=== PATIENT | male | born 1995 | race Caucasian/White ===

== ENCOUNTER 2020-12-15 04:23 | Emergency (ER) | payer SELFPAY ==
[2020-12-15 04:37] VITALS: BMI 34.4
[2020-12-15] MEDS ORDERED: SODIUM CHLORIDE 0.9% 500 ML INFUS.BAG IV ONE ×2 (04:45→06:02)
[2020-12-15 05:23] LABS: BASO % 0.7 % (0-2.0); EOS % 0.9 % (0-4.5); HEMATOCRIT 45.2 % (35.4-49); HEMOGLOBIN 16.1 GM/dL (11.7-16.9); LYMPH % 51.3 % (8-40); MCH 31.2 pg (25.7-33.7); MCHC 35.6 g/dl (32.0-35.9); MEAN CELL VOLUME 87.7 fl (80-96); MEAN PLT VOLUME 9.6 fl (7.5-11.1); MONO % 6.6 % (3.8-10.2); NEUT % 40.5 % (42.8-82.8); PLATELET COUNT 232 K/MM3 (134-434); RBC 5.15 M/mm3 (4.00-5.60); RDW 12.1 % (11.9-15.9); WHITE BLOOD COUNT 10.7 K/mm3 (4.0-10.0)
[2020-12-15 05:46] LABS: CHLORIDE 108 mmol/L (98-107); SODIUM 141 mmol/L (136-145)
[2020-12-15 05:48] LABS: CALCIUM 8.8 mg/dL (8.5-10.1)
[2020-12-15 05:49] LABS: ALBUMIN 4.1 g/dl (3.4-5.0); ANION GAP 7 MMOL/L (8-16); BLOOD UREA NITROGEN 11.4 mg/dL (7-18); CO2 27 mmol/L (21-32); GLUCOSE,RANDOM 109 mg/dL (74-106)
[2020-12-15] MEDS ORDERED: ADENOSINE 6 MG/2 ML VIAL IVPUSH ONE ×4 (05:51→06:02)
[2020-12-15 05:52] LABS: CREATININE 1.1 mg/dL (0.55-1.3); SGOT/AST 31 U/L (15-37); SGPT/ALT 78 U/L (13-61)
[2020-12-15 05:53] LABS: BILIRUBIN,TOTAL 0.5 mg/dL (0.2-1)
[2020-12-15 05:54] LABS: ALK PHOS 73 U/L (45-117); TOT PROT 7.9 g/dl (6.4-8.2)
[2020-12-15 06:41] LABS: INR 1.11 (0.83-1.09); PROTHROMBIN TIME (PATIENT) 13.6 SEC (9.7-13.0)
[2020-12-15 06:44] LABS: ACTIVATED PTT 30.6 SECONDS (25.2-36.5)
[2020-12-15] MEDS ORDERED: METOPROLOL TARTRATE 25 MG TABLET (FP) PO ONE (07:29)
[2020-12-15 07:40] LABS: MAGNESIUM 1.8 mg/dL (1.8-2.4)
[2020-12-15] MEDS ORDERED: metoPROLOL SUCCINATE 25 MG TAB.SR.24H (FP) ONE (07:44)
[2020-12-15 11:15] VITALS: BP 113/57; PULSE 98; TEMP 97.6
== END 2020-12-15 11:18 | disposition home or self-care (01) ==
LOC: EDBD 04:23 → JER 04:23
PROC: 3E033NZ Introduction of Analgesics, Hypnotics, Sedatives into Peripheral Vein, Percutaneous Approach (ICD-10-PCS; principal; 2020-12-15)
PROC: 3E033GC Introduction of Other Therapeutic Substance into Peripheral Vein, Percutaneous Approach (ICD-10-PCS; 2020-12-15)
DX: R00.2 Palpitations (principal)
CPT/HCPCS: 36415; 71045-TC-FY; 80053; 82550; 83735; 84443; 84484; 85025; 85379; 85610; 85730; 86850; 86900; 86901; 93005; 93010; 99285-25; C9803; U0003; U0005

== ENCOUNTER 2021-01-09 20:17 | Emergency (ER) | payer OTHER ==
[2021-01-09 20:31] VITALS: TEMP 98.7; BMI 31.6
[2021-01-09 21:36] LABS: BASO % 0.5 % (0-2.0); EOS % 0.1 % (0-4.5); HEMATOCRIT 47.1 % (35.4-49); HEMOGLOBIN 16.4 GM/dL (11.7-16.9); LYMPH % 25.3 % (8-40); MCH 30.8 pg (25.7-33.7); MCHC 34.9 g/dl (32.0-35.9); MEAN CELL VOLUME 88.3 fl (80-96); MEAN PLT VOLUME 9.4 fl (7.5-11.1); MONO % 6.7 % (3.8-10.2); NEUT % 67.4 % (42.8-82.8); PLATELET COUNT 237 K/MM3 (134-434); RBC 5.34 M/mm3 (4.00-5.60); WHITE BLOOD COUNT 7.7 K/mm3 (4.0-10.0)
[2021-01-09 21:54] LABS: CHLORIDE 105 mmol/L (98-107); SODIUM 139 mmol/L (136-145)
[2021-01-09 21:56] LABS: CALCIUM 9.6 mg/dL (8.5-10.1)
[2021-01-09 21:58] LABS: ALBUMIN 4.8 g/dl (3.4-5.0); ANION GAP 12 MMOL/L (8-16); BLOOD UREA NITROGEN 11.4 mg/dL (7-18); CO2 22 mmol/L (21-32); GLUCOSE,RANDOM 115 mg/dL (74-106); MAGNESIUM 2.3 mg/dL (1.8-2.4)
[2021-01-09 22:00] LABS: SGOT/AST 35 U/L (15-37); SGPT/ALT 96 U/L (13-61)
[2021-01-09 22:02] LABS: ALK PHOS 71 U/L (45-117); TOT PROT 8.8 g/dl (6.4-8.2)
[2021-01-09] MEDS ORDERED: POTASSIUM CHLORIDE TABS 20 MEQ TABLET.ER (FP) PO ONE ×3 (22:26→22:55)
[2021-01-09 23:39] VITALS: BP 123/86
[2021-01-11 13:25] VITALS: PULSE 106
== END 2021-01-09 23:39 | disposition home or self-care (01) ==
LOC: JER 20:17
DX: R53.1 Weakness (principal); R00.0 Tachycardia, unspecified
CPT/HCPCS: 36415; 71046-TC-FY; 80053; 82550; 83735; 84484; 85025; 93005; 93010; 99285-25

== ENCOUNTER 2022-01-11 23:14 | Emergency (ER) | payer OTHER ==
[2022-01-11 23:29] VITALS: BP 136/83; PULSE 95; TEMP 98.1; BMI 28.1
== END 2022-01-12 00:41 | disposition home or self-care (01) ==
LOC: JER 23:14
DX: R20.2 Paresthesia of skin (principal)
CPT/HCPCS: 82962; 99283-25